=== PATIENT | female | born 1995 | race Caucasian/White ===

== ENCOUNTER 2018-09-30 14:19 | Inpatient (IN) ==
[2018-09-30 15:09] LABS: Amphetamine Screen,Urine Negative ng/mL (Cutoff=1000); Barbiturate Screen,Urine Negative ng/mL (Cutoff=200); Benzodiazepines Screen,Urine Negative ng/mL (Cutoff=200); Cannabinoid Screen,Urine Positive ng/mL (Cutoff = 50); Cocaine Screen,Urine Negative ng/mL (Cutoff= 300); Opiate Screen,Urine Negative ng/mL (Cutoff=300); Phencyclidine Screen,Urine Negative ng/mL (Cutoff=25)
[2018-09-30] MEDS ORDERED: Famotidine 20 MG/2 ML VIAL IVP PRN (15:59)
[2018-09-30] MEDS ORDERED: Ondansetron 4 MG/2 ML VIAL IVP PRN (15:59)
[2018-09-30] MEDS ORDERED: Metoclopramide 10 MG/2 ML VIAL IVP PRN (15:59)
[2018-09-30] MEDS ORDERED: Naloxone 0.4 MG/ML INJ IVP PRN (15:59)
[2018-09-30 16:22] LABS: Basophils # 0.1 K/mcL (0.0-0.2); Basophils % 0.7 %; Hematocrit 37.9 % (35.3-44.9); Immature Granulocytes % 2.1 % (0-4); Lymphocytes # 2.7 K/mcL (0.6-4.6); Lymphocytes % 21.3 %; Mean Corpuscular HGB Conc 34.3 g/dL (31.6-35.5); Mean Corpuscular Hemoglobin 29.6 pg (28.0-33.3); Mean Corpuscular Volume 86.3 fL (83.0-100.0); Mean Platelet Volume 8.8 fL (9.4-12.4); Monocytes # 1.2 K/mcL (0.0-1.3); Monocytes % 9.5 %; Neutrophils # 8.5 K/mcL (1.6-8.9); Platelet Count 341 K/mcL (140-400); Red Blood Count 4.39 M/mcL (3.82-4.97); Red Cell Distribution Width 12.7 % (11.5-14.5); Segmented Neutrophils % 66.4 %
[2018-09-30] MEDS ORDERED: Ringers Solution, Lactated 1,000 ML ONE (16:33)
[2018-09-30] MEDS ORDERED: Epidural Premix (fent/bupiv) 110 ML EP ONE (16:33)
[2018-09-30] MEDS ORDERED: Oxytocin 20 units/ LR 1000 mL 20 UNIT/1,000 ML BAG IVC ONE (16:33)
[2018-09-30] MEDS ORDERED: Lidocaine -MPF 2% 5 ML VIAL ONE (16:34)
[2018-09-30] MEDS ORDERED: Epidural Premix (fent/bupiv) 110 ML EP SCH (17:00)
--- NOTE | 2018-09-30 17:01 | Anesthesia Evaluation PreOp ---
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: Other (chronic back pain) Other Medical History: Denies Any Significant HX Anesthesia History: No Prior Anesthetic Complications, Past Anesthesia Alcohol Use: none Drug use: none Medications and Allergies Sulfamethoxazole/Trimeth DS [Bactrim DS] 1 each PO BID #20 tablet 06/08/16 [Rx] cephALEXin [Keflex] 500 mg PO TID #30 capsule 06/08/16 [Rx] Allergy/AdvReac Type Severity Reaction Status Date / Time No Known Allergies Allergy Verified 06/08/16 00:26 Anesthesia Results - Labs 09/30/18 15:50 Anesthesia Exam - HEENT Pupil (Motor): Pupils equal Mallampati: III Teeth: Normal Oral Opening: Greater than 3 - SEWING TECHNIQUES DEMONSTRATOR LOC: Oriented SEWING TECHNIQUES DEMONSTRATOR Motor: Normal RUE, Normal LUE, Normal RLE, Normal LLE, Normal Face SEWING TECHNIQUES DEMONSTRATOR Sensory: Normal: RUE, LUE, RLE, LLE, Face - Cardiac Rhythm: Regular Murmur: None - Pulmonary Breath Sounds: bilateral Clear Respiratory Effort: Symmetrical Anesthesia Assess/Plan ASA Score: 2 Level of consciousness: Cooperative, Oriented Anesthetic Plan: General, Spinal, Epidural Monitoring Plan: Standard Monitors Recovery Plan: PACU
--- NOTE | 2018-09-30 17:03 | Anesthesia Procedures ---
Date of Encounter: 09/30/18 Time of Encounter: 16:44 Procedures: Anesthesia - Epidural/Spinal Patient ID/Chart reviewed: Yes Patient examined: Yes OB Eval: Gestational age: term OB Eval: : 2 OB Eval: Hx Para: 1 OB Eval: Contractions: Non-stressed pattern Consent Obtained: Yes Supplemental Oxygen: None/Room Air Site Prep: Aseptic Technique, Sterile prep and drape, 0.5% Chlorhexidine/Alcohol Patient position: upright Local Anesthetic: Lidocaine 1% Amount of Local Anesthetic used: 2 Touhy Needle Gauge: 18 Touhy Needle Depth (cm): 6 Catheter Depth at Skin (cm): 10 Test Dose (1.5% Lido + Epi): Volume given (mls): 3 Test Dose Result: Negative Loading Dose: Other: 10ml from solution Loading Dose Administered: Thru Catheter Infusion Med: 0.125% Bupivacaine w/ 2 mcg/ml Fentanyl Infusion Rate (mls/hr): [address]: Tegaderm, Tape Interspace Used: L4-L5 Loss of Resistance (CLAUDIA): Yes (saline) Blood: No CSF: No Paresthesia: No Procedure: vss though out procedure, FHR stable per RN's
--- NOTE | 2018-09-30 17:29 | OB/GYN History & Physical ---
Date of Encounter: 09/30/18 Time of Encounter: 17:25 Assessment and Plan (1) 38 weeks gestation of Current visit: Yes Status: Acute 22 y/o @ 38+1 weeks in labor, + chlamydia (treated), GBS neg cervix -6cm patient making cervical change, allow labor to progress, ok for epidural if she desires, anticipate History of Present Illness HPI: Ms. Jimenez is a 22 year old female @ 38+1 weeks who presents with regular contractions before her office visit. She does not report LOF or VB, feels good FM. She had a recent chlamydia infection and was treated. She was supposed to have a ILA but arrived in labor. GBS neg. Past Med Surg Social Fam HX - Past Medical History Medical history: no medical history Additional medical history: ear surgery to extract an object as child Psychiatric history: depression - Past Surgical History Surgical History: no surgical history Additional surgical history: ears - Social History Smoking Status: Current every day smoker Packs per day: 1/2 Smokeless Tobacco Status: No Alcohol use: none Drug use: none - Family History Mother Adopted: [place]: Lloyd Shirley Age: 38 Family Member Ethnicity: Non- Living Status: Still Living Hx Family Cardiac Disorders: No Hx Family Respiratory Disorders: No Hx Family Cancer: No Hx Family GI Disorders: No Hx Family Genitourinary Disorders: No Hx Family Endocrine Disorder: No Hx Family Musculoskeletal Disorders: No Hx Family Neuromuscular Disorders: No Hx Family Neurologic Disorders: No Hx Family HEENT Disorders: No Hx Family Autoimmune Disorders: No Hx Family Reproductive Disorders: No Hx Family Psychosocial Disorders: No Hx Family Medical Disorders: No Obstetrical History - Pregnancies : 3 Para: 1 Medications and Allergies Sulfamethoxazole/Trimeth DS [Bactrim DS] 1 each PO BID #20 tablet 06/08/16 [Rx] cephALEXin [Keflex] 500 mg PO TID #30 capsule 06/08/16 [Rx] Allergy/AdvReac Type Severity Reaction Status Date / Time No Known Allergies Allergy Verified 06/08/16 00:26 Exam - Constitutional Constitutional: no acute distress - HEENT HEENT: PERRL - Lungs Respiratory exam: CTAB - Cardiovascular Cardiovascular exam: RRR - Abdomen Abdomen: Present: gravid Results Result Diagrams: 09/30/18 15:50 Abnormal lab results WBC 12.8 K/mcL (4.3-11.1) H 09/30/18 15:50 MPV 8.8 fL (9.4-12.4) L 09/30/18 15:50 U Marijuana (THC) Screen Positive ng/mL (Cutoff = 50) H 09/30/18 14:40 All other labs normal. - VTE Reasons for not Prescribing Prophylaxis: Treatment not Indicated - Low risk for VTE
--- NOTE | 2018-09-30 19:01 | OB Labor Progress Note ---
Date of Encounter: 09/30/18 Time of Encounter: 18:58 Labor Progress Note - Subjective Subjective: Pt resting comfortably with epidural in place. - Vital Signs Vital Signs: WNL, Afebrile - Cervix Cervix: 8/90/-1 - Heart Tones Heart Tones: FHR 120 bpm, moderate variability, no accels, early decels - [place]: 2-4 minutes - Interventions Interventions: SVE AROM for moderate amount of heavy meconium fluid. - Plan Plan: Anticipate
--- NOTE | 2018-09-30 20:06 | OB/GYN Procedure Note ---
Delivery - Delivery Date: 09/30/18 Provider: Carina Renteria Intrapartum events: none Delivery induction: none Delivery augmentation: rupture of membranes Delivery monitor: external FHT, external uterine Anesthesia: epidural Quantitated Blood Loss: 100 - Repair Episiotomy: none Laceration Description: Periurethral - Complications Delivery complications: none - Disposition Mom disposition: stable in LDR disposition: stable in LDR - Comments Comments: 22 y/o now delivered a viable female infant @ 1943hrs 2890g(6lbs 6oz), delivered [id number], no nuchal cord, APGARs 8/9, placenta delivered @ 1945hrs. Bilateral periurethral lacerations repaired with 3-0 monocryl. Mother and doing well.
[2018-09-30] MEDS ORDERED: Measles/Mumps/Rubella Vacc 0.5 ML VIAL SQ PRN (21:35)
[2018-09-30] MEDS ORDERED: Oxytocin 20 units/ LR 1000 mL 20 UNIT/1,000 ML BAG IVC SCH (21:35)
[2018-10-01] MEDS: Ibuprofen 600 MG TABLET PO PRN ×3 (01:53→15:13)
[2018-10-01 07:53] LABS: Basophils # 0.1 K/mcL (0.0-0.2); Basophils % 0.6 %; Hematocrit 33.3 % (35.3-44.9); Immature Granulocytes % 1.2 % (0-4); Lymphocytes # 2.7 K/mcL (0.6-4.6); Lymphocytes % 19.6 %; Mean Corpuscular HGB Conc 33.3 g/dL (31.6-35.5); Mean Corpuscular Hemoglobin 29.1 pg (28.0-33.3); Mean Corpuscular Volume 87.2 fL (83.0-100.0); Monocytes # 1.2 K/mcL (0.0-1.3); Monocytes % 8.9 %; Neutrophils # 9.5 K/mcL (1.6-8.9); Platelet Count 286 K/mcL (140-400); Red Blood Count 3.82 M/mcL (3.82-4.97); Red Cell Distribution Width 12.8 % (11.5-14.5); Segmented Neutrophils % 69.7 %
[2018-10-01 08:06] LABS: Hemoglobin 11.1 g/dL (11.5-15.4)
[2018-10-01] MEDS: Prenatal Vit/FA 1 EACH TABLET PO SCH (08:31)
--- NOTE | 2018-10-01 09:31 | OB/GYN Progress Note ---
Date of Encounter: 10/01/18 Time of Encounter: 09:28 - Assessment and Plan (1) Vaginal delivery Current Visit: Yes Status: Acute Continue routine care Meeting appropriate milestones Potential discharge home today or tomorrow. Discussed stopping smoking; cessation education offered - patient declines Subjective - Subjective Principal diagnosis: Vaginal delivery Interval history: S/P Vaginal delivery day 1 Pain well controlled Lochia light and without clots VSS Tolerating regular diet; passing flatus Voiding without difficulty Bottle Feeding Possible discharge home today after meeting with Licensed Master Social Worker; Potentially adopting out baby POC per consult with Dr Sheikh Patient reports: appetite normal, voiding normally, pain well controlled, ambulating normally [place]: doing well, bottle feeding Objective - Latest Vital Signs Latest vital signs: Vital Signs Temp Pulse Resp BP Pulse Ox 10/01/18 07:57 97.9 F 67 12 107/71 98 10/01/18 02:00 97.6 F 59 14 135/92 97 09/30/18 23:20 98 F 78 16 124/65 99 09/30/18 22:19 98.1 F 82 16 125/74 97 Intake and Output 09/30/18 10/01/18 10/01/18 23:59 07:59 15:59 Intake Total 900 / 900 Output Total 800 / 800 800 / 800 550 / 550 Balance -800 / -800 100 / 100 -550 / -550 Intake: Oral 900 / 900 Output: Urine 800 / 800 800 / 800 550 / 550 Other: Meal Breakfast Percent of Meal Consumed 100% Weight 84.2 kg Patient Weight 10/01/18 23:59 Weight 84.2 kg - Exam Lungs: bilateral: normal Chest: Normal S1, Normal S2 Extremities: Present: normal Abdomen: Present: normal appearance, soft. Absent: gravid, tenderness Uterus: Present: normal, firm. Absent: bogginess, tenderness Uterus Position: At Umbilicus, Midline - Labs Labs: Laboratory Results - last 24 hr 09/30/18 09/30/18 10/01/18 14:40 15:50 06:34 WBC 12.8 H 13.7 H RBC 4.39 3.82 Hgb 13.0 11.1 L D Hct 37.9 33.3 L MCV 86.3 87.2 MCH 29.6 29.1 MCHC 34.3 33.3 RDW 12.7 12.8 Plt Count 341 286 MPV 8.8 L 9.0 L Immature Gran % 2.1 1.2 Seg Neutrophils % 66.4 69.7 Lymphocytes % 21.3 19.6 Monocytes % 9.5 8.9 Eosinophils % 0.0 0.0 Basophils % 0.7 0.6 Neutrophils # 8.5 9.5 H Lymphocytes # 2.7 2.7 Monocytes # 1.2 1.2 Eosinophils # 0.0 0.0 Basophils # 0.1 0.1 Urine Opiates Screen Negative Ur Barbiturates Screen Negative Ur Phencyclidine Scrn Negative Ur Amphetamines Screen Negative U Benzodiazepines Scrn Negative Urine Cocaine Screen Negative U Marijuana (THC) Screen Positive H Ur Drug Screen Interp See Below
[2018-10-01] MEDS ORDERED: Benzocaine/Menthol 56 GM AEROSOL SPRAY TP PRN (17:05)
[2018-10-02] MEDS: Acetaminophen 325 MG TABLET PO PRN ×2 (00:47→08:26)
[2018-10-02] MEDS: Ibuprofen 600 MG TABLET PO PRN (06:36)
[2018-10-02 08:08] VITALS: BP 132/88
--- NOTE | 2018-10-02 08:24 | Discharge Summary ---
Date of Encounter: 10/02/18 Time of Encounter: 08:22 - Discharge Diagnosis (1) Vaginal delivery Priority: Primary Status: Acute Comments: Continue routine care discharge home today follow up with Dr. Renteria in 4-6 weeks - Discharge Medications Prescriptions: Ibuprofen [Motrin] 600 mg PO Q6HR PRN #60 tablet PRN Reason: Cramping Home Medications: Benzocaine/Menthol [place] [Dermoplast [place]] 1 appl TP QID PRN aerosol 10/02/18 [Rx] Ibuprofen [Motrin] 600 mg PO Q6HR PRN #60 tablet 10/02/18 [Rx] Vit/FA 1 each PO DAILY tablet 10/02/18 [Rx] Allergies/Adverse Reactions: Allergy/AdvReac Type Severity Reaction Status Date / Time No Known Allergies Allergy Verified 06/08/16 00:26 Data Procedures and tests throughout hospitalization: Laboratory Tests 09/30/18 09/30/18 10/01/18 14:40 15:50 06:34 WBC 12.8 H 13.7 H RBC 4.39 3.82 Hgb 13.0 11.1 L D Hct 37.9 33.3 L MCV 86.3 87.2 MCH 29.6 29.1 MCHC 34.3 33.3 RDW 12.7 12.8 Plt Count 341 286 MPV 8.8 L 9.0 L Immature Gran % 2.1 1.2 Seg Neutrophils % 66.4 69.7 Lymphocytes % 21.3 19.6 Monocytes % 9.5 8.9 Eosinophils % 0.0 0.0 Basophils % 0.7 0.6 Neutrophils # 8.5 9.5 H Lymphocytes # 2.7 2.7 Monocytes # 1.2 1.2 Eosinophils # 0.0 0.0 Basophils # 0.1 0.1 Urine Opiates Screen Negative Ur Barbiturates Screen Negative Ur Phencyclidine Scrn Negative Ur Amphetamines Screen Negative U Benzodiazepines Scrn Negative Urine Cocaine Screen Negative U Marijuana (THC) Screen Positive H Ur Drug Screen Interp See Below Date of admission: 09/30/18 14:19 Primary care physician: PCP NONE Consults: 09/30/18 21:35 Consult to Superintendent Comp[employer] Stations [CONS] Routine Comment: Vaginal delivery, consult needed Discharging clinician: Edyta Bill Anticipated date of discharge: 10/02/18 - Patient Status Disposition: Home, Self-Care Condition: Good Functional capacity at discharge: independent ambulation - Discharge Instructions Follow Up With: NONE,PCP [Primary Care Provider] - Carina Renteria MD [Partnered Physician] - - Diet and Activity Activity: increase activity as tolerated Diet: regular diet Hospital Course Delivery: Episiotomy: none Laceration: other (bilateral periurethral) complications: none Discharge diagnosis: IUP at term delivered [place] baby: female (bottle feeding-considering adoption) Time Attestation: Total time spent providing and/or coordinating discharge services: Time Spent: Less than 30 minutes Exam - Constitutional Vitals: Temp Pulse Resp BP Pulse Ox 97.7 F 66 16 132/88 98 10/02/18 08:06 10/02/18 08:06 10/02/18 08:06 10/02/18 08:06 10/02/18 08:06 General appearance IM: A&O X 3, pleasant, answers questions appropriately - Respiratory Respiratory exam: Present: CTAB - Cardiovascular Cardiovascular exam IM: Present: RRR, +S1, +S2 - GI/Abdominal GI/Abdominal exam IM: normal bowel sounds - Uterine Tone: Firm Uterus Position: At Umbilicus, Midline - Extremities Exam Extremities exam IM: Present: full ROM, normal capillary refill, normal inspection - Neurological Exam Neurological exam: alert, oriented X3, reflexes normal
[2018-10-02] MEDS: Prenatal Vit/FA 1 EACH TABLET PO SCH (08:26)
== END 2018-10-02 12:00 | disposition home or self-care (01) | DRG 560 ==
LOC: 1NENULAB → OBSVTOIN 14:19 → 1NENUOBS 22:10
PROVIDERS: ADMIT Registered Nurse; ATTEND Registered Nurse

== ENCOUNTER 2022-03-03 19:15 | Inpatient (IN) ==
[2022-03-03 13:36] LABS: Basophils # 0.1 K/mcL (0.0-0.2); Basophils % 0.6 %; Eosinophils # 0.1 K/mcL (0.0-0.6); Eosinophils % 1.4 %; Hemoglobin 10.3 g/dL (11.5-15.4); Lymphocytes % 24.8 %; Mean Corpuscular HGB Conc 33.2 g/dL (31.6-35.5); Mean Corpuscular Hemoglobin 29.1 pg (28.0-33.3); Mean Corpuscular Volume 87.6 fL (83.0-100.0); Mean Platelet Volume 9.4 fL (9.4-12.4); Monocytes # 0.7 K/mcL (0.0-1.3); Monocytes % 9.3 %; Platelet Count 258 K/mcL (140-400); Red Blood Count 3.54 M/mcL (3.82-4.97); Red Cell Distribution Width 11.9 % (11.5-14.5); Segmented Neutrophils % 62.9 %
[2022-03-03 14:04] LABS: Amphetamine Screen,Urine Negative ng/mL (Cutoff=1000); Barbiturate Screen,Urine Negative ng/mL (Cutoff=200); Benzodiazepines Screen,Urine Negative ng/mL (Cutoff=200); Cannabinoid Screen,Urine Positive ng/mL (Cutoff = 50); Cocaine Screen,Urine Negative ng/mL (Cutoff= 300); Opiate Screen,Urine Negative ng/mL (Cutoff=300); Phencyclidine Screen,Urine Negative ng/mL (Cutoff=25)
[~2022-03-03 19:15] MED LIST: *HR* FentaNYL (PF) 100 MCG/2 ML VIAL IVP PRN; *HR* HYDROMORPHONE 2 MG/ML VIAL ONE; *HR* HYDROmorphone PF 0.5 MG/0.5 ML SYRINGE IVP PRN; *HR* LORazepam 1 MG TABLET PO ONE; *HR* Midazolam HCl 2 MG/2 ML VIAL IVP PRN; *HR* Propofol 200 MG/20 ML VIAL IVP ONE; Acetaminophen IV 1,000 MG/100 ML BAG IVPB ONE; CeFAZolin 2,000 MG/120 ML BAG IVPB ONE; Famotidine 20 MG/2 ML VIAL IVP ONE; Ketamine *HR* 500 MG/10 ML MDV ONE; Ketorolac 30 MG/ML VIAL ONE; Melatonin 3 MG TABLET PO PRN; Metoclopramide 10 MG/2 ML VIAL IVP ONE; Naloxone 0.4 MG/ML INJ IVP PRN; Ondansetron 4 MG/2 ML VIAL IVP PRN; Ondansetron 4 MG/2 ML VIAL ONE; Oxytocin 30 UNIT/503 ML BAG IVC ONE; Oxytocin 30 UNIT/503 ML BAG IVC SCH; Perflutren Lipid Microsphere 1.3 ML in 0.9 % Sodium Chloride 8.7 ML IVP PRN; Rho Immune Globulin 1,500 UNIT SYRINGE IM ONE; Ringers Solution, Lactated 1,000 ML IVC ONE; Ringers Solution, Lactated 1,000 ML ONE; cloNIDine HCL 0.1 MG TABLET PO ONE
[2022-03-03 20:26] LABS: Triiodothyronine (T3) Free 3.11 pg/mL (2.50-3.90); Troponin I < 0.03 ng/mL (< 0.04)
[2022-03-03 20:50] LABS: Alanine Aminotransferase 9 Units/L (7-52); Albumin 3.1 g/dL (3.5-5.7); Alkaline Phosphatase 117 Units/L (34-104); Aspartate Amino Transferase 70 Units/L (13-39); BUN/Creatinine Ratio 11 (6-26); Bilirubin,Total 0.3 mg/dL (0.3-1.0); Blood Urea Nitrogen 7 mg/dL (6-20); Calcium 8.9 mg/dL (8.6-10.3); Carbon Dioxide 17 mEq/L (23-29); Chloride 106 mEq/L (98-107); Glucose 91 mg/dL (70-105); Osmolality,Calculated 280 (280-300); Potassium 4.2 mEq/L (3.5-5.1); Sodium 136 mEq/L (136-145); eGFR For African Americans > 60 (> 60); eGFR For Non-African Americans > 60 (> 60)
[2022-03-03] MEDS: Simethicone 80 MG TAB.CHEW PO PRN (21:21)
[2022-03-03] MEDS: *HR* OxyCODONE Immed Rel 5 MG TABLET PO PRN (21:21)
[2022-03-03] MEDS: Ringers Solution, Lactated 1,000 ML IVC SCH (21:22)
[2022-03-03] MEDS: Ibuprofen 600 MG TABLET PO SCH (21:34)
[2022-03-03 21:48] LABS: Magnesium 1.3 mg/dL (1.6-2.6); Phosphorous 3.2 mg/dL (2.7-4.5); Total Protein 5.5 g/dL (6.4-8.9)
[2022-03-04] MEDS: *HR* OxyCODONE Immed Rel 5 MG TABLET PO PRN ×2 (04:22→09:19)
[2022-03-04] MEDS: Acetaminophen 325 MG TABLET PO SCH ×4 (04:23→23:16)
[2022-03-04] MEDS: Ibuprofen 600 MG TABLET PO SCH ×4 (04:24→23:16)
[2022-03-04 05:15] LABS: BUN/Creatinine Ratio 8 (6-26); Blood Urea Nitrogen 6 mg/dL (6-20); Calcium 9.3 mg/dL (8.6-10.3); Carbon Dioxide 23 mEq/L (23-29); Chloride 104 mEq/L (98-107); Glucose 94 mg/dL (70-105); Osmolality,Calculated 281 (280-300); Potassium 4.2 mEq/L (3.5-5.1); Sodium 137 mEq/L (136-145); eGFR For African Americans > 60 (> 60); eGFR For Non-African Americans > 60 (> 60)
[2022-03-04] MEDS: Ringers Solution, Lactated 1,000 ML IVC SCH ×2 (05:18→06:33)
[2022-03-04] MEDS: Prenatal Vit/FA 1 EACH TABLET PO SCH (09:19)
[2022-03-04 11:16] LABS: Basophils % 0.3 %; Hematocrit 30.2 % (35.3-44.9); Hemoglobin 9.6 g/dL (11.5-15.4); Immature Granulocytes % 0.9 % (0-4); Lymphocytes # 2.6 K/mcL (0.6-4.6); Lymphocytes % 16.7 %; Mean Corpuscular HGB Conc 31.8 g/dL (31.6-35.5); Mean Corpuscular Hemoglobin 28.9 pg (28.0-33.3); Mean Platelet Volume 9.6 fL (9.4-12.4); Monocytes # 1.6 K/mcL (0.0-1.3); Monocytes % 9.9 %; Neutrophils # 11.3 K/mcL (1.6-8.9); Platelet Count 334 K/mcL (140-400); Red Blood Count 3.32 M/mcL (3.82-4.97); Red Cell Distribution Width 12.1 % (11.5-14.5); Segmented Neutrophils % 72.2 %; White Blood Count 15.7 K/mcL (4.3-11.1)
[2022-03-04 11:18] LABS: Basophils # 0.1 K/mcL (0.0-0.2)
[2022-03-04 11:24] LABS: Magnesium 1.5 mg/dL (1.6-2.6)
[2022-03-04] MEDS: *HR* Buprenorphine HCl 8 MG TAB.SUBL SL SCH (20:51)
[2022-03-05] MEDS ORDERED: Lanolin 7 G OINT...G. TP PRN (01:05)
[2022-03-05 05:04] LABS: Basophils # 0.1 K/mcL (0.0-0.2); Basophils % 0.5 %; Eosinophils # 0.2 K/mcL (0.0-0.6); Eosinophils % 2.4 %; Hematocrit 23.9 % (35.3-44.9); Immature Granulocytes % 0.8 % (0-4); Lymphocytes # 3.2 K/mcL (0.6-4.6); Lymphocytes % 34.5 %; Mean Corpuscular HGB Conc 32.2 g/dL (31.6-35.5); Mean Corpuscular Hemoglobin 28.5 pg (28.0-33.3); Mean Corpuscular Volume 88.5 fL (83.0-100.0); Mean Platelet Volume 9.1 fL (9.4-12.4); Monocytes # 0.8 K/mcL (0.0-1.3); Neutrophils # 4.8 K/mcL (1.6-8.9); Platelet Count 257 K/mcL (140-400); Red Cell Distribution Width 12.1 % (11.5-14.5); Segmented Neutrophils % 52.8 %; White Blood Count 9.1 K/mcL (4.3-11.1)
[2022-03-05 05:11] LABS: Hemoglobin 7.7 g/dL (11.5-15.4)
[2022-03-05 05:29] LABS: BUN/Creatinine Ratio 8 (6-26); Blood Urea Nitrogen 6 mg/dL (6-20); Calcium 8.7 mg/dL (8.6-10.3); Carbon Dioxide 27 mEq/L (23-29); Chloride 104 mEq/L (98-107); Glucose 73 mg/dL (70-105); Magnesium 1.7 mg/dL (1.6-2.6); Osmolality,Calculated 282 (280-300); Potassium 3.4 mEq/L (3.5-5.1); Sodium 138 mEq/L (136-145); eGFR For African Americans > 60 (> 60); eGFR For Non-African Americans > 60 (> 60)
[2022-03-05] MEDS: Acetaminophen 325 MG TABLET PO SCH ×3 (06:28→18:28)
[2022-03-05] MEDS: Ibuprofen 600 MG TABLET PO SCH ×3 (06:28→18:28)
[2022-03-05] MEDS: *HR* Buprenorphine HCl 8 MG TAB.SUBL SL SCH ×2 (09:13→21:49)
[2022-03-05] MEDS: Simethicone 80 MG TAB.CHEW PO PRN (09:13)
[2022-03-05] MEDS: Prenatal Vit/FA 1 EACH TABLET PO SCH (09:13)
[2022-03-05 11:05] LABS: Alanine Aminotransferase 9 Units/L (7-52); Aspartate Amino Transferase 39 Units/L (13-39); BUN/Creatinine Ratio 10 (6-26); Blood Urea Nitrogen 7 mg/dL (6-20); Lactate Dehydrogenase 231 Units/L (140-271); Uric Acid 5.5 mg/dL (2.3-7.6); eGFR For African Americans > 60 (> 60); eGFR For Non-African Americans > 60 (> 60)
[2022-03-05 16:34] VITALS: O2SAT 100
[2022-03-06] MEDS: Acetaminophen 325 MG TABLET PO SCH ×2 (00:21→06:34)
[2022-03-06] MEDS: Ibuprofen 600 MG TABLET PO SCH ×2 (00:21→06:34)
[2022-03-06 04:12] LABS: Basophils # 0.1 K/mcL (0.0-0.2); Basophils % 0.9 %; Eosinophils # 0.2 K/mcL (0.0-0.6); Eosinophils % 2.8 %; Hematocrit 23.2 % (35.3-44.9); Hemoglobin 7.4 g/dL (11.5-15.4); Immature Granulocytes % 0.6 % (0-4); Lymphocytes # 3.1 K/mcL (0.6-4.6); Lymphocytes % 36.2 %; Mean Corpuscular HGB Conc 31.9 g/dL (31.6-35.5); Mean Corpuscular Hemoglobin 28.7 pg (28.0-33.3); Mean Corpuscular Volume 89.9 fL (83.0-100.0); Mean Platelet Volume 8.9 fL (9.4-12.4); Monocytes # 0.7 K/mcL (0.0-1.3); Neutrophils # 4.4 K/mcL (1.6-8.9); Platelet Count 267 K/mcL (140-400); Red Blood Count 2.58 M/mcL (3.82-4.97); Segmented Neutrophils % 51.5 %; White Blood Count 8.5 K/mcL (4.3-11.1)
[2022-03-06 07:07] VITALS: BP 106/65; PULSE 73; TEMP 98
[2022-03-06] MEDS: Simethicone 80 MG TAB.CHEW PO PRN (09:15)
[2022-03-06] MEDS: Prenatal Vit/FA 1 EACH TABLET PO SCH (09:15)
[2022-03-06] MEDS: *HR* Buprenorphine HCl 8 MG TAB.SUBL SL SCH (09:15)
== END 2022-03-06 11:30 | disposition home or self-care (01) | DRG 540 ==
LOC: 1NENULAB → 3BNU 19:15 → 1NENUOBS 03-04 12:21
PROVIDERS: ADMIT Student in an Organized Health Care Education/Training Program; ATTEND Student in an Organized Health Care Education/Training Program